=== PATIENT | female | born 1965 ===

== ENCOUNTER 2017-10-25 13:06 | Emergency (ER) | payer BC ==
[2017-10-25] MEDS ORDERED: Azithromycin 250 MG Tab ONE (14:00)
--- NOTE | 2017-10-25 15:17 | EDM.PDOC ---
ED HPI GENERAL MEDICAL PROBLEM - General Chief Complaint: General Stated Complaint: SWOLLEN LEFT EYE Time Seen by Provider: 10/25/17 13:30 Source of Information: Reports: Patient History Limitations: Reports: No Limitations - History of Present Illness INITIAL COMMENTS - FREE TEXT/NARRATIVE: Patient is a 52 year old woman who was walking her dog 5 days ago and her left upper eyelid was frostbit. It is swollen and it hebert a little. The swelling went down and it feels better with a warm pack. No other complaints. Onset Date: 10/20/17 Onset Time: 07:00 Duration: Day(s): (5), Improving Location: Reports: Face (Left upper eyelid was frostbit and now is swollen.) Quality: Reports: Other (It is puffy and hebert a little but really no pain.) Severity: Mild Improves with: Reports: Heat Therapy Worsens with: Reports: None Context: Reports: Other (Was walking dog and her left upper eyelid was montgomery bit.) Associated Symptoms: Reports: No Other Symptoms Treatments HIDE PASTER: Reports: Home Treatments Social & Family History - Tobacco Use Smoking Status *Q: Never Smoker ED ROS GENERAL - Review of Systems Review Of Systems: ROS reveals no pertinent complaints other than HPI. ED EXAM, GENERAL - Physical Exam Exam: See Below Exam Limited By: No Limitations General Appearance: Alert, WD/WN, No Apparent Distress Eye Exam: Left Eye: Normal Inspection (Left upper eyelid is mildly swollen and erythematous.), Bilateral Eye: EOMI, Normal Fundi, PERRL Ears: Normal External Exam, Normal Canal, Hearing Grossly Normal, Normal TMs Ear Exam: Bilateral Ear: Auricle Normal, Canal Normal, TM normal Nose: Normal Inspection, Normal Mucosa, No Blood Throat/Mouth: Normal Inspection, Normal Lips, Normal Teeth, Normal Gums, Normal Oropharynx, Normal Voice, No Airway Compromise Head: Atraumatic, Normocephalic Neck: Normal Inspection, Supple, Non-Tender, Full Range of Motion Respiratory/Chest: No Respiratory Distress, Lungs Clear, Normal Breath Sounds, No Accessory Muscle Use, Chest Non-Tender Cardiovascular: Normal Peripheral Pulses, Regular Rate, Rhythm, No Edema, No Gallop, No JVD, No Murmur, No Rub GI/Abdominal: Normal Bowel Sounds, Soft, Non-Tender, No Organomegaly, No Distention, No Abnormal Bruit, No Mass Extremities: Normal Inspection, Normal Range of Motion, Non-Tender, Normal Capillary Refill, No Pedal Edema Neurological: Alert, Oriented, CN II-XII Intact, Normal Cognition, Normal Gait, Normal Reflexes, No Motor/Sensory Deficits Psychiatric: Normal Affect, Normal Mood Course - Vital Signs Text/Narrative:: Uneventful ED course. She was given a Zithromax Z-cindy to take as directed. She will use a warm pack on the eye and will see her eye doctor early next week. Recheck here if needed. Departure - Departure Time of Disposition: 15:21 Disposition: Home, Self-Care 01 Condition: Good Clinical Impression: Cellulitis of left eyelid - Discharge Information Referrals: PCP,None [Primary Care Provider] - Forms: ED Department Discharge
== END 2017-10-25 15:00 | disposition home or self-care (01) ==
LOC: LB.ED 13:06
DX: H00.034 Abscess of left upper eyelid (principal)
CPT/HCPCS: 99283; A9270